=== PATIENT | male | born 1985 | race Caucasian/White ===

== ENCOUNTER 2016-12-12 13:48 | Inpatient (IN) | payer BC ==
[~2016-12-12] VITALS: Ht 180.3 cm; Wt 72.2 kg
[~2016-12-12 13:48] MED LIST: HYDROXYZINE PAM50 MG PO; NICOTINE T21 MG/24 H T; ONDANSETRON4 MG PO; SINEMET 25-100M1 TAB PO
[2016-12-12 14:57] LABS: BASO # 0.1 10*3/uL (0.0-0.1); BASO % 0.4 % (0.0-1.0); EOS # 0.1 10*3/uL (0.0-0.4); HEMATOCRIT 43.6 % (42.0-52.0); LYMPH # 3.2 10*3/uL (1.3-4.4); LYMPH % 28.2 % (27.0-41.0); MEAN CORPUSCULAR HGB 31.6 pg (27.0-31.0); MEAN CORPUSCULAR HGB CONC 34.4 g/dl (33.0-37.0); MEAN PLATELET VOLUME 9.5 fl (9.6-12.3); MONO # 0.7 10*3/uL (0.1-1.0); MONO % 6.2 % (3.0-9.0); NEUT # 7.3 10*3/uL (2.3-7.9); NEUT % 63.8 % (47.0-73.0); PLATELET COUNT AUTOMATED 219 10*3/uL (130-400); RED BLOOD COUNT 4.74 10*6/uL (4.50-5.90); RED CELL DISTRI WIDTH 12.3 % (0-14.5); WHITE BLOOD COUNT 11.5 10*3/uL (4.8-10.8)
[2016-12-12 15:11] LABS: ALBUMIN 3.9 gm/dl (3.1-4.5); ALKALINE PHOSPHATASE 50 U/L (45-117); BUN 8 mg/dl (7-24); CHLORIDE 104 mmol/L (98-107); CREATININE 0.97 mg/dL (0.70-1.30); POTASSIUM 3.7 mmol/L (3.5-5.1); SGOT/AST 20 IU/L (3-35); SGPT/ALT 67 U/L (12-78); SODIUM 140 mmol/L (136-145); TOTAL PROTEIN 7.6 gm/dL (6.4-8.2)
[2016-12-12 15:15] LABS: ETHYL ALCOHOL < 3.0 mg/dl (<3)
[2016-12-12 15:17] VITALS: BP 104/61
[2016-12-12 16:00] VITALS: BP 104/58
[2016-12-12 16:59] LABS: BILIRUBIN NEGATIVE (NEGATIVE); BLOOD NEGATIVE (NEGATIVE); CLARITY SL CLOUDY (CLEAR); COLOR YELLOW (YELLOW); GLUCOSE NEGATIVE (NEGATIVE); KETONE NEGATIVE (NEGATIVE); LEUKO ESTERASE NEGATIVE (NEGATIVE); NITRITE NEGATIVE (NEGATIVE); SPECIFIC GRAVITY 1.025 (1.005-1.030); UROBILINOGEN 0.2 E.U./dl (0.2-1.0)
[2016-12-12 17:05] LABS: BACTERIA TRACE; EPITHELIAL CELLS 0-2; MUCOUS TRACE; RBC 0-2 rbc/hpf (0-2); WBC 0-2 wbc/hpf (0-5)
[2016-12-12 17:07] LABS: URINE AMPHETAMINES < 1000 (1000ng/ml); URINE BARBITURATES < 200 (200ng/ml); URINE BENZODIAZEPINES < 200 (200ng/ml); URINE CANNABINOIDS (THC) > 50 (50ng/ml); URINE COCAINE < 300 (300ng/ml); URINE METHADONE < 300 (300ng/ml); URINE OPIATES < 300 (300ng/ml)
[2016-12-12 17:11] LABS: URINE PHENCYCLIDINE < 25 (25ng/ml)
[2016-12-12 20:00] VITALS: BP 113/65
[2016-12-13] VITALS (7 sets, daily range): BP systolic 112–128; BP diastolic 61–79
[2016-12-14] VITALS: BP 120/86
[2016-12-14 08:00] VITALS: BP 112/66
[2016-12-14 12:00] VITALS: BP 127/69
== END 2016-12-14 14:50 | disposition left against medical advice (07) | DRG 894 ==
LOC: 5E 13:48
PROVIDERS: Family Medicine; ADMIT Internal Medicine
DX: F11.23 Opioid dependence with withdrawal (principal); D72.829 Elevated white blood cell count, unspecified; F41.9 Anxiety disorder, unspecified; M79.1 Myalgia; F12.10 Cannabis abuse, uncomplicated; F17.210 Nicotine dependence, cigarettes, uncomplicated; Z53.21 Procedure and treatment not carried out due to patient leaving prior to being seen by health care provider; Z80.8 Family history of malignant neoplasm of other organs or systems

== ENCOUNTER 2017-02-10 11:17 | Inpatient (IN) | payer BC, MEDICAID ==
[~2017-02-10] VITALS: Ht 154.9 cm; Wt 71.4 kg
--- NOTE | 2017-02-10 12:05 | NUR ---
31 year old MALE, [place] admitted to room # 504-1 for stabilization. Reports an addiction to IV HEROIN last used THIS AM. Compliant with admission procedure. Patient denies any anxiety, but is unable to sit still, taps toes to floor continuously, looks about room, unable to focus eyes on nurse during interview. See assessment forms for additional information about patient status.
[2017-02-10 12:21] LABS: BASO # 0.1 10*3/uL (0.0-0.1); BASO % 0.5 % (0.0-1.0); EOS % 0.4 % (1.0-4.0); HEMATOCRIT 48.5 % (42.0-52.0); LYMPH # 2.9 10*3/uL (1.3-4.4); LYMPH % 26.7 % (27.0-41.0); MEAN CELL VOLUME 88.8 fl (80.0-94.0); MEAN CORPUSCULAR HGB 31.1 pg (27.0-31.0); MEAN CORPUSCULAR HGB CONC 35.1 g/dl (33.0-37.0); MEAN PLATELET VOLUME 9.4 fl (9.6-12.3); MONO # 0.7 10*3/uL (0.1-1.0); MONO % 6.3 % (3.0-9.0); NEUT # 7.1 10*3/uL (2.3-7.9); NEUT % 65.7 % (47.0-73.0); PLATELET COUNT AUTOMATED 251 10*3/uL (130-400); RED BLOOD COUNT 5.46 10*6/uL (4.50-5.90); RED CELL DISTRI WIDTH 12.3 % (0-14.5); WHITE BLOOD COUNT 10.7 10*3/uL (4.8-10.8)
[2017-02-10 12:29] LABS: INTERNATIONAL NORM RATIO 1.1 (2.0-3.5)
[2017-02-10 12:37] LABS: ALBUMIN 4.4 gm/dl (3.1-4.5); ALKALINE PHOSPHATASE 51 U/L (45-117); BUN 10 mg/dl (7-24); CHLORIDE 104 mmol/L (98-107); CREATININE 0.88 mg/dL (0.70-1.30); POTASSIUM 4.1 mmol/L (3.5-5.1); SGOT/AST 17 IU/L (3-35); SGPT/ALT 48 U/L (12-78); SODIUM 140 mmol/L (136-145); TOTAL PROTEIN 8.2 gm/dL (6.4-8.2)
[2017-02-10 12:40] LABS: ETHYL ALCOHOL < 3.0 mg/dl (<3)
[2017-02-10 13:00] VITALS: BP 134/89
[2017-02-10 13:32] LABS: BILIRUBIN NEGATIVE (NEGATIVE); BLOOD NEGATIVE (NEGATIVE); CLARITY CLEAR (CLEAR); COLOR YELLOW (YELLOW); GLUCOSE NEGATIVE (NEGATIVE); KETONE NEGATIVE (NEGATIVE); LEUKO ESTERASE NEGATIVE (NEGATIVE); NITRITE NEGATIVE (NEGATIVE); PH 6.5 (5.0-9.0); SPECIFIC GRAVITY 1.015 (1.005-1.030); UROBILINOGEN 0.2 E.U./dl (0.2-1.0)
[2017-02-10 13:38] LABS: URINE AMPHETAMINES < 1000 (1000ng/ml); URINE BARBITURATES < 200 (200ng/ml); URINE BENZODIAZEPINES < 200 (200ng/ml); URINE CANNABINOIDS (THC) > 50 (50ng/ml); URINE COCAINE < 300 (300ng/ml); URINE METHADONE < 300 (300ng/ml); URINE OPIATES > 300 (300ng/ml)
[2017-02-10 13:40] LABS: URINE PHENCYCLIDINE < 25 (25ng/ml)
[2017-02-10 13:43] LABS: MUCOUS 2+; WBC 0-2 wbc/hpf (0-5)
[2017-02-10 16:00] VITALS: BP 110/86
--- NOTE | 2017-02-10 16:11 | NUR ---
D/C PLANNING: PATIENT IS GOING TO [facility] FOR HIS AFTERCARE PLAN. AXEL OLIVAS B.A. CHILD CARE SITTER
[2017-02-10 20:55] VITALS: BP 105/55
[2017-02-11] VITALS: BP 111/64
[2017-02-11 04:00] VITALS: BP 107/52
--- NOTE | 2017-02-11 06:26 | NUR ---
PT RECEIVED VISTARIL FOR ANXIETY.
--- NOTE | 2017-02-11 06:26 | NUR ---
PT RECEIVED MOTRIN FOR BACK PAIN RATED 5/10.
--- NOTE | 2017-02-11 06:55 | NUR ---
PT SEEMS MORE RELAXED POST VISTARIL AND MOTRIN ADMINISTRATION. CLAIMS PAIN IS STARTING TO EASE. RATES PAIN 4/10.
[2017-02-11 08:00] VITALS: BP 108/56; BP 99/49
--- NOTE | 2017-02-11 09:46 | NUR ---
MEDICATED WITH TYLENOL, ROBAXIN, AND REQUIP FOR COMPLAINTS OF BACK PAIN, RESTLESS LEGS AND ACHING. WILL MONITOR FOR EFFECTIVENESS.
--- NOTE | 2017-02-11 10:55 | NUR ---
Patient resting. Responding to scheduled medications with fewer complaints of pain and anxiety.
[2017-02-11 12:00] VITALS: BP 129/87
[2017-02-11 16:00] VITALS: BP 132/78
--- NOTE | 2017-02-11 17:00 | NUR ---
PT RESTING IN BED, NO DISTRESS NOTED.
--- NOTE | 2017-02-11 19:35 | NUR ---
PT. SLEEPING UPON ENTERING ROOM. PT. AWAKENED FOR SHIFT ASSESSMENT; ALERT AND ORIENTED X 3. PT. CURRENTLY DENIES CP, SOB, N/V/D. CALL LIGHT WITHIN REACH, BED IN LOWEST POSITION, WHEELS LOCKED. SEE SHIFT ASSESSMENT.
--- NOTE | 2017-02-11 21:54 | NUR ---
Patient displaying withdrawal symptoms, including: irritability, anxiousness, restlessness and agitation. Scheduled/PRN medications provided. Will continue to monitor medication effectiveness.
[2017-02-12] VITALS: BP 108/68
--- NOTE | 2017-02-12 00:57 | NUR ---
24 HR chart check completed.
[2017-02-12 08:00] VITALS: BP 118/73
--- NOTE | 2017-02-12 08:20 | NUR ---
ASSESSMENT COMPLETE. RESP EASY ON RA. PT UP AD ANTONELLA IN ROOM EATING BREAKFAST. DENIES W/D S/S AT THIS TIME. CALL LIGHT IN REACH.
--- NOTE | 2017-02-12 10:38 | NUR ---
ROBAXIN 750 MG GIVEN FOR C/O "ACHY LEGS", 08/27.
[2017-02-12 12:00] VITALS: BP 115/70
--- NOTE | 2017-02-12 12:32 | NUR ---
NICODERM 21 MG PATCH GIVEN PER PT REQUEST.
--- NOTE | 2017-02-12 15:20 | NUR ---
Patient resting quietly with no c/o discomfort. Respirations easy and regular. Vital signs stable. No overt distress.RESPS EASY ON RA. CALL LIGHT IN REACH. FERNY TOPETE
[2017-02-12 16:00] VITALS: BP 146/88
--- NOTE | 2017-02-12 16:45 | NUR ---
Medicated for antiexity , and general discomfort, leg cramps and restless leg.
[2017-02-12 20:00] VITALS: BP 115/78
--- NOTE | 2017-02-12 22:19 | NUR ---
Patient reports the following symptoms of withdrawal: body aches, leg pain, and cocaine cravings. Patient given scheduled/PRN medication to control withdrawal symptoms. Close observation will be maintained.
--- NOTE | 2017-02-12 23:20 | NUR ---
Patient resting quietly in bed with eyes closed. PRN medications effective. Will continue to monitor. Call light within reach.
[2017-02-13] VITALS: BP 113/68
--- NOTE | 2017-02-13 01:41 | NUR ---
24 HR chart check completed.
--- NOTE | 2017-02-13 07:28 | NUR ---
24 HR chart check completed.
[2017-02-13 08:00] VITALS: BP 100/51
[2017-02-13] MEDS ORDERED: ATARAX,VISTARIL50 MG PO (10:39)
[2017-02-13] MEDS ORDERED: ROPINIROLE HYD0.5 MG PO (10:39)
[2017-02-13] MEDS ORDERED: ZOFRAN 4 MG ED2 TAB PO (10:39)
--- NOTE | 2017-02-13 11:06 | NUR ---
MOTRIN 600 MG,BENTYL 20MG AND ROBAXIN 750 MG GIVEN FOR C/O CRAMPING AND MUSCLW ACHES TO BACK AND BLE.
--- NOTE | 2017-02-13 11:08 | NUR ---
Patient discharged in stable condition, referral letter provided to patient with specific instructions and appointment for ongoing treatment. Patient verbalizes understanding of discharge plAN AND F/U WITH [facility] [place].
== END 2017-02-13 11:27 | disposition home or self-care (01) | DRG 897 ==
LOC: 5E 11:17
PROVIDERS: Internal Medicine; ADMIT Internal Medicine
DX: F11.23 Opioid dependence with withdrawal (principal); D72.810 Lymphocytopenia; F41.9 Anxiety disorder, unspecified; F17.210 Nicotine dependence, cigarettes, uncomplicated; F12.10 Cannabis abuse, uncomplicated; E66.3 Overweight; Z80.8 Family history of malignant neoplasm of other organs or systems; Z82.49 Family history of ischemic heart disease and other diseases of the circulatory system; Z68.29 Body mass index [BMI] 29.0-29.9, adult